=== PATIENT | female | born 1940 | race Caucasian/White ===

== ENCOUNTER 2016-11-11 07:01 | Emergency (ER) | payer MEDICARE, BC ==
[2016-11-11] MEDS ORDERED: NS 0.9% 1000 ML* 1,000 ML IV ONE (08:18)
[2016-11-11] MEDS ORDERED: Ondansetron INJ* 2 MG/ML VIAL IV ONE (08:18)
[2016-11-11] MEDS ORDERED: Ketorolac INJ* 30 MG/ML 1 ML VIAL IV PUSH ONE (08:18)
--- NOTE | 2016-11-11 08:37 | ED ---
Radha Blue Salem, scribed for Laura Espinosa MD on 11/11/16 at 0824 . GI/ HPI - HPI Summary HPI Summary: Patient is a 76 y/o female who presents to the ED with 2/10 right flank pain since 0300 today. She reports nausea, urgency, and frequency, but denies hematuria or any recent trauma. She states her pain was a 9/10 at 0400 and that she took 2 Hydrocodone for the pain at 0500. Pt vomited twice since (first at 0600). She also states that she was in the ED in July 2016 for a kidney stone on the left side. She reports she passed the stone at home, but she was admitted into the hospital for several days iin July. Pt reports mild nausea at present. no fevers, chills No cp, sob. Pt with small stone fragment in urine in ED. Pt suspects she is passing another stone. She is present at the ED with her . PMHx HTN. SHx significant for cholecystectomy and appendectomy. - History of Current Complaint Chief Complaint: EDFlankPain Time Seen by Provider: 11/11/16 08:07 Stated Complaint: LOWER RT ABD PAIN Hx Obtained From: Patient Onset/Duration: Started Hours Ago, Still Present Timing: Constant Severity: Moderate Current Severity: Moderate Pain Intensity: 8 Location of Pain: Flank - Right Associated Signs and Symptoms: Positive: Nausea, Vomiting - Twice., Other: - Urgency. Frequency.. Negative: Hematuria Aggravating Factor(s): Nothing Alleviating Factor(s): Nothing - Additional Pertinent History Primary Care Physician: [id number] - Allergy/Home Medications Allergies/Adverse Reactions: Allergies Allergy/AdvReac Type Severity Reaction Status Date / Time MARY Inhibitors Allergy Hives Verified 04/03/14 22:57 Erythromycin Allergy Hives Verified 04/03/14 22:57 Fluvastatin [From Lescol] Allergy Hives Verified 04/03/14 22:57 Losartan Allergy Hives Verified 04/03/14 22:57 Penicillins [PCN] Allergy Hives Verified 04/03/14 22:57 Statins Allergy Hives Verified 04/03/14 22:57 PMH/Surg Hx/FS Hx/Imm Hx Previously Healthy: Yes Endocrine/Hematology History: Denies: Hx Diabetes Cardiovascular History: Reports: Hx Hypertension, Other Cardiovascular Problems/ Disorders - Left bundle branch block Denies: Hx Pacemaker/ICD Respiratory History: Reports: Hx Pneumonia GI History: Reports: Hx Gastroesophageal Reflux Disease, Other GI Disorders - barretts esophagus, tubular adenoma History: Denies: Hx Renal Disease Musculoskeletal History: Reports: Other Musculoskeletal History - right knee pain at times Sensory History: Reports: Hx Cataracts, Hx Contacts or Glasses Denies: Hx Hearing Aid Opthamlomology History: Reports: Hx Cataracts, Hx Contacts or Glasses Psychiatric History: Denies: Hx Panic Disorder - Surgical History Surgery Procedure, Year, and Place: appendectomy @19 yrs old. ovarian cyst excision. right shoulder. cataract. cholecystectomy Hx Anesthesia Reactions: No Infectious Disease History: No Infectious Disease History: Denies: Traveled Outside the [place] in Last 30 Days - Family History Family History: No FHx of malignant hyperthermia. No FHx of anesthesia reaction - Social History Alcohol Use: Rare Hx Substance Use: No Substance Use Type: Reports: None Hx Tobacco Use: No Smoking Status (MU): Never Smoked Tobacco Review of Systems Constitutional: Negative Negative: Fever Eyes: Negative ENT: Negative Cardiovascular: Negative Respiratory: Negative Gastrointestinal: Negative Positive: Vomiting, Nausea, Other - right flank Genitourinary: Negative Positive: frequency, urgency. Negative: hematuria Skin: Negative Neurological: Negative Psychological: Normal All Other Systems Reviewed And Are Negative: Yes Physical Exam Triage Information Reviewed: Yes Vital Signs On Initial Exam: Initial Vitals Temp Pulse Resp BP Pulse Ox 96.6 F 69 16 182/69 96 11/11/16 07:04 11/11/16 07:04 11/11/16 07:04 11/11/16 07:04 11/11/16 07:04 Vital Signs Reviewed: Yes Appearance: Positive: Well-Appearing, Well-Nourished, Pain Distress - minimal discomfort Skin: Positive: Warm, Skin Color Reflects Adequate Perfusion, Dry Head/Face: Positive: Normal Head/Face Inspection Eyes: Positive: Normal Neck: Positive: Supple, Nontender Respiratory/Lung Sounds: Positive: Clear to Auscultation, Breath Sounds Present Cardiovascular: Positive: Normal, RRR Abdomen Description: Positive: Nontender, No Organomegaly, Soft Bowel Sounds: Positive: Present Musculoskeletal: Positive: Normal Neurological: Positive: Normal, Sensory/Motor Intact, Alert, Oriented to Person Place, Time Psychiatric: Positive: Normal AVPU Assessment: Alert - [place] Coma Scale Best Eye Response: 4 - Spontaneous Best Motor Response: 6 - Obeys Commands Best Verbal Response: 5 - Oriented Coma Scale Total: 15 Diagnostics - Vital Signs Vital Signs Temp Pulse Resp BP Pulse Ox 11/11/16 07:04 96.6 F 69 16 182/69 96 - Laboratory Result Diagrams: 11/11/16 08:40 11/11/16 08:40 Lab Statement: Any lab studies that have been ordered have been reviewed, and results considered in the medical decision making process. - Ultrasound No standard instances Ultrasound Interpretation Completed By: Radiologist - RENAL ULTRASOUND IMPRESSION: NO EVIDENCE FOR HYDRONEPHROSIS. Re-Evaluation - Re-Evaluation First Eval Re-Evaluation Time: 09:29 Comment: Completely pain free. No nausea. Would like to take a nap. Second Eval Re-Evaluation Time: 10:20 Comment: She is in no pain and would like to go home. GIGU Course/Dx - Course Assessment/Plan: Pt presents through amb triage with right flank pain that woke her at 3am. Pt with h/o renal stone on left and states feels similar. 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 At present, pain 2/10. no fevers, back pain. Pt well appearing on exam. Will check labs, urine, ultrasound. IVF. zofran,toradol. reassess - Diagnoses Provider Diagnoses: Renal colic on right side Discharge - Discharge Plan Condition: Improved Disposition: HOME Patient Education Materials: Flank Pain (ED) Referrals: Jeffrey Iyer MD [Primary Care Provider] - Ezra Barfield MD [Medical Doctor] - Additional Instructions: - stay well hydrated. Drink plenty of non-alcoholic, non-caffinated beverages - Okay to alternate ibuprofen (Advil, Motrin) 600mg and tylenol product ( Tylenol or Percocet) every 3 hours for pain. Take with food. Do NOT take for more than 4-[address], operate machinery or drink alcohol every 3 hours for pain. Take with food. Percocet is a narcotic - does not drive, operate machinery or drink alcohol while taking percocet. This medication may cause constipation - use a stool softener as needed - okay to take medication as prescribed for nausea - It is recommended you contact the urologist to arrange a follow-up appointment. Contact the urologist, your doctor, or return with questions or concerns The documentation as recorded by the Radha streling Salem accurately reflects the service I personally performed and the decisions made by me, Laura Espinosa MD.
[2016-11-11 08:47] LABS: Urine Bacteria Absent (Absent); Urine Bilirubin Negative (Negative); Urine Glucose Negative (Negative); Urine Nitrite Negative (Negative)
[2016-11-11 09:05] LABS: Hematocrit 41 % (35-47); Hemoglobin 13.5 g/dl (12.0-16.0); Mean Corpuscular HGB Conc 33 g/dl (31-36); Mean Corpuscular Hemoglobin 29 pg (27-31); Mean Corpuscular Volume 88 fL (80-97); Mean Platelet Volume 8 um3 (7.4-10.4); Red Blood Count 4.64 10^6/ul (4.0-5.4); Red Cell Distribution Width 15 % (10.5-15); White Blood Count 8.1 10^3/ul (3.5-10.8)
[2016-11-11 09:26] LABS: ALT 28 U/L (7-52); AST 21 U/L (13-39); Albumin 4.3 g/dL (3.2-5.2); Alkaline Phosphatase 89 U/L (34-104); Anion Gap 9 mmol/L (2-11); BUN/Creatinine Ratio 24.4 (8-20); Blood Urea Nitrogen 19 mg/dL (6-24); CO2 Carbon Dioxide 25 mmol/L (22-32); Calcium 9.2 mg/dL (8.6-10.3); Chloride 105 mmol/L (101-111); EGFR African American 92.8 (>60); EGFR Non-African American 72.2 (>60); Globulin 2.6 g/dL (2-4); Glucose 135 mg/dL (70-100); Lipase < 10 U/L (11.0-82.0); Potassium 4.2 mmol/L (3.5-5.0); Sodium 139 mmol/L (133-145); Total Protein 6.9 g/dL (6.4-8.9)
--- NOTE | 2016-11-11 09:53 | RAD ---
INDICATION: Right flank abdominal pain history of renal calculi. COMPARISON: Appear seated is made with a prior CT of the abdomen and pelvis from July 26, 2016. Correlation is also made with a prior renal ultrasound from July 27, 2016. TECHNIQUE: Multiple real-time images of the right kidney were obtained. FINDINGS: The right kidney is normal in size shape and echogenicity. The kidney measured 10.1 x 5.0 x 4.5 cm. No hydronephrosis is seen. There are peripelvic renal cysts. The largest measures 2.8 x 1.9 x 2.9 cm and is unchanged from the prior ultrasound study. No calculi are seen. There is a right ureteral jet present. IMPRESSION: NO EVIDENCE FOR HYDRONEPHROSIS.
[2016-11-11 12:11] VITALS: BP 158/58
== END 2016-11-11 11:20 | disposition home or self-care (01) ==
LOC: ED 07:01
DX: N23 Unspecified renal colic (principal); R11.2 Nausea with vomiting, unspecified
CPT/HCPCS: 36415; 76775; 80053; 81003; 81015; 82365; 83690; 83735; 85025; 88300; 96374; 96375; 99283; J1885; J2405